=== PATIENT | female | born 1990 | race African-American/Black ===

== ENCOUNTER 2016-09-18 07:34 | Emergency (ER) | payer OTHER ==
[~2016-09-18] VITALS: Ht 177.8 cm; Wt 81.8 kg
[~2016-09-18 07:34] MED LIST: ALBUTEROL0.09 MG/A4 IH; CLARITIN10 MG PO; SINGULAIR 110 MG/TAB PO
[2016-09-18 07:38] VITALS: BP 132/79; TEMP 98
[2016-09-18] MEDS ORDERED: PREDNISONE20 MG PO (08:47)
[2016-09-18 08:51] VITALS: PULSE 75
== END 2016-09-18 08:52 | disposition home or self-care (01) ==
LOC: COL.ER 07:34
DX: J45.909 Unspecified asthma, uncomplicated (principal); Z98.890 Other specified postprocedural states
CPT/HCPCS: J7512

== ENCOUNTER 2017-12-29 19:39 | Outpatient (CLI) | payer OTHER ==
[~2017-12-29] VITALS: Ht 177.8 cm; Wt 93.6 kg
[~2017-12-29 19:39] MED LIST changes: +PREDNISONE20 MG PO
[2017-12-29 20:00] VITALS: BP 142/85; PULSE 90; TEMP 98.6
== END 2017-12-29 20:45 | disposition home or self-care (01) ==
LOC: LDRO 19:39
DX: O36.8120 Decreased fetal movements, second trimester, not applicable or unspecified (principal); Z3A.25 25 weeks gestation of pregnancy

== ENCOUNTER 2018-04-12 06:46 | Inpatient (IN) | payer OTHER ==
[~2018-04-12] VITALS: Ht 177.8 cm; Wt 104.5 kg
[2018-04-12 18:17] VITALS: BP 137/87; PULSE 89; TEMP 97.6
--- NOTE | 2018-04-12 19:00 | NUR ---
1899- Patient ambulatory to LDR-4 with mother, Cydney, and sister, Cheri. Patient and family oriented to labor room. Patient into restroom to void and change into gown. 1904- EFM and TOCO on and tracing. Patient states she "slipped" in parking lot on ice but did not fall down. Patient denies contractions, leaking of fluid, bleeding, or spotting. Assessment completed. Consents signed. IV started. 1929- See Physician Notification. 1944- SVE Closed/-2 by Azucena. Cytotec placed. See eMAR.
[2018-04-12] MEDS ORDERED: PRENATAL MVI (19:11)
[2018-04-12] MEDS ORDERED: NATURAL IRON65 MG (19:12)
[2018-04-12 20:00] VITALS: BP 141/86; PULSE 84
[2018-04-12 20:15] LABS: BASO % 0.4 % (0.0-2.0); EOS # 0.1 (0.0-0.7); EOS % 1.2 % (0-4.0); GRAN # 4.1 (1.4-6.5); GRAN % 60.4 % (42.2-75.2); HEMOGLOBIN 11.8 g/dl (12.5-16.0); LYMPH % 29.8 % (20.0-51.0); MEAN CELL VOLUME 85 fl (80.0-100.0); MEAN CORPUSCULAR HEMOGLOBIN 29 pg (27.0-31.0); MEAN CORPUSCULAR HGB CONC 34 g/dl (33.0-37.0); MEAN PLATELET VOLUME 12.5 fl (7.4-10.4); MONO # 0.6 (0.1-0.6); MONO % 8.1 % (1.7-9.3); PLATELET COUNT 160 K/mm3 (130-400); REDCELL DISTRIBUTION WIDTH-CV 14.6 % (11.5-14.5)
[2018-04-12 20:18] LABS: HEMATOCRIT 34.9 % (37.0-47.0)
[2018-04-12 20:30] VITALS: BP 130/80; PULSE 82
[2018-04-12 21:00] VITALS: BP 138/74; PULSE 83
[2018-04-12 21:30] VITALS: BP 132/70; PULSE 82
[2018-04-12 22:00] VITALS: BP 127/76; PULSE 82; TEMP 98.4
[2018-04-13] VITALS (29 sets, daily range): BP systolic 113–158; BP diastolic 67–99; PULSE 82–111; TEMP 98.2–98.7
--- NOTE | 2018-04-13 | NUR ---
2200- Patient off monitor per Cytotec protocol. 2245- EFM and TOCO on and tracing. FHT reassuring. 2300- Patient off moinitor per protocol. 2345- EFM and TOCO on and tracing. 0000- 2nd dose of Cytotec not given per parameters from . See Physician Notification from earlier. Patient states contractions are beginning to feel more uncomfortable but she is coping with labor and contractions well. Will continue to monitor and will re-evaluate at 0200.
--- NOTE | 2018-04-13 05:00 | NUR ---
0200- EFM and TOCO on and tracing. FHT reassuring. Contractions every 2-4 minutes. 0230- SVE unsuccessful by this RN. 0300- Patient is requesting an epidural. 0315- See Physician Notification. 0320- HONEY Sosa called for epidural. 0330- SVE 3 by KAYLEEN Estrella. 0355- HONEY Sosa at bedside for epidural. Patient repositioned to sitting upright. 0410- Single Shot. See Anesthesia Record. 0445- RN called to bedside. Patient states she thinks her water broke. Amniotrace negative. 0500- Hess catheter inserted. 0530- RN at bedside for SVE. Thick meconium noted to be coming out of vagina. KAYLEEN Estrella called to bedside. SVE 2 with thick meconium. 0545- See Physician Notification.
--- NOTE | 2018-04-13 06:30 | NUR ---
0627- SVE at this time, thick meconium noted on chux pad, presentation Breech noted by this RN. Asked for second opinion, charge nurse Adali performed cervical examination at 0628, confirmed Breech presentation also. 629- Dr. Bui called and was updated with Breech presention. Dr. Bui states, "I am on my way to the hospital now, and will call Dr. Biswas for assistance."
--- NOTE | 2018-04-13 06:45 | NUR ---
0645- [facility] dc'd at this time to take patient to the OR for Primary section due to Breech presentation.
[2018-04-14 00:01] VITALS: BP 139/84; PULSE 93; TEMP 98.8
--- NOTE | 2018-04-14 00:01 | NUR ---
REPORT RECEIVED FROM OFF GOING RN, CARE TAKEN OVER BY THIS RN
[2018-04-14 04:14] VITALS: BP 128/72; PULSE 96; TEMP 98.7
[2018-04-14 06:44] LABS: HEMATOCRIT 29.6 % (37.0-47.0); HEMOGLOBIN 9.9 g/dl (12.5-16.0)
[2018-04-14 07:50] VITALS: BP 121/74; PULSE 94; TEMP 98.6
[2018-04-14] MEDS ORDERED: IBU600 MG PO (08:54)
[2018-04-14] MEDS ORDERED: PERCOCET 325 MG1 TA2 PO (08:54)
[2018-04-14 16:15] VITALS: BP 130/77; PULSE 98; TEMP 98.6
--- NOTE | 2018-04-14 19:10 | NUR ---
Pt c/o burning at incision site. Site approximated, no drainage or bleeding noted. Pain medication not available for approximately 30 minutes. Ice pack applied to site at this time. Discussed plan of care with pt and her mother. Will reassess in approximately 20 minutes.
[2018-04-14 19:39] VITALS: BP 131/77; PULSE 98; TEMP 98.8
--- NOTE | 2018-04-14 22:30 | NUR ---
Assumed care at this time.
[2018-04-15 08:10] VITALS: BP 137/80; PULSE 96; TEMP 98
== END 2018-04-15 12:35 | disposition home or self-care (01) | DRG 788 ==
LOC: LDR 06:46 → OB 18:58 → LDR 18:58 → OB 04-13 08:45
PROVIDERS: ADMIT Obstetrics & Gynecology
PROC: 3E0P7VZ Introduction of Hormone into Female Reproductive, Via Natural or Artificial Opening (ICD-10-PCS; 2018-04-12)
PROC: 10D00Z1 Extraction of Products of Conception, Low, Open Approach (ICD-10-PCS; principal; 2018-04-13)
DX: O61.0 Failed medical induction of labor (principal); J45.909 Unspecified asthma, uncomplicated; Z3A.40 40 weeks gestation of pregnancy; Z37.0 Single live birth; O32.1XX0 Maternal care for breech presentation, not applicable or unspecified; O77.0 Labor and delivery complicated by meconium in amniotic fluid; O90.81 Anemia of the puerperium
CPT/HCPCS: J0690; J1885; J2250; J2270; J2370; J2405; J2590; J2795; J3010; J7120